=== PATIENT | male | born 1965 | race African-American/Black ===

== ENCOUNTER 2019-04-08 05:41 | Inpatient (IN) | payer MEDICAID ==
[~2019-04-08] VITALS: Ht 188 cm; Wt 111.2 kg
[2019-04-08] VITALS (8 sets, daily range): BP systolic 150–179; BP diastolic 70–110
[2019-04-08] MEDS ORDERED: NITROGLYCERIN 0.4MG TABLET SL SL PRN ×2 (06:00→10:00)
[2019-04-08] MEDS ORDERED: FUROSEMIDE 100MG/10ML VIAL IVP ONE (06:00)
[2019-04-08 06:18] LABS: BASOPHILS % 1.1 % (0.0-2.0); EOSINOPHILS % 1.5 % (0.0-5.0); HEMOGLOBIN. 10.8 g/dL (14.0-18.0); LYMPHOCYTES % 11.9 % (20.0-50.0); MEAN CORPUSCULAR HEMOGLOBIN 26.4 pg (28.0-32.0); MEAN CORPUSCULAR VOLUME 80.6 fL (80.0-94.0); MEAN PLATELET VOLUME 8.3 fl (7.4-10.4); MONOCYTES % 9.9 % (2.0-8.0); NEUTROPHILS % 75.6 % (40.0-76.0); PLATELET 283 x1000/uL (130-400); RED CELL DISTRIBUTION WIDTH 17.9 % (11.6-14.6)
[2019-04-08 06:23] LABS: CHLORIDE 106 mEq/L (98-107)
[2019-04-08] MEDS ORDERED: KETOROLAC 15MG/ML VIAL IV PRN (10:00)
[2019-04-08] MEDS ORDERED: IPRATROPIUM/ALBUTEROL 0.5-3(2.5)MG/3ML NEB INH PRN (10:00)
[2019-04-08] MEDS ORDERED: ONDANSETRON HCL 4MG/2ML INJ IV PRN (10:00)
[2019-04-08] MEDS ORDERED: ACETAMINOPHEN 325MG TABLET PO PRN (10:00)
[2019-04-08] MEDS ORDERED: MAGNESIUM/ALUMINUM HYDROXIDE/SIMETHICONE 30ML UDC PO PRN (10:00)
[2019-04-08] MEDS ORDERED: DOCUSATE SODIUM 100MG CAPSULE PO PRN (10:00)
[2019-04-08] MEDS ORDERED: GUAIFENESIN 200MG/10ML SUGAR FREE UDC PO PRN (10:00)
[2019-04-08] MEDS ORDERED: ZOLPIDEM TARTRATE 5MG TABLET PO PRN (10:00)
[2019-04-08] MEDS: ENOXAPARIN 40MG/0.4ML SYR SUBCUT SCH (11:18)
[2019-04-08] MEDS: AMLODIPINE 10MG TABLET PO SCH (11:22)
[2019-04-08] MEDS: LISINOPRIL 20MG TABLET PO SCH ×2 (11:26→20:10)
[2019-04-08] MEDS: FAMOTIDINE 20MG TABLET PO SCH ×2 (11:26→20:05)
[2019-04-08] MEDS: ASPIRIN 325MG EC TABLET PO SCH (11:26)
[2019-04-08 13:30] LABS: *AMPHETAMINES SCREEN URINE NEGATIVE (NEGATIVE); *BARBITURATES SCREEN URINE NEGATIVE (NEGATIVE); *BENZODIAZEPINES SCREEN URINE NEGATIVE (NEGATIVE); *COCAINE SCREEN URINE NEGATIVE (NEGATIVE)
[2019-04-08 13:31] LABS: CANNABINOID URINE SCREEN PRESUMTIVE POSITIVE (NEGATIVE); METHADONE URINE SCREEN NEGATIVE (NEGATIVE); OPIATES URINE SCREEN NEGATIVE (NEGATIVE); PHENCYCLIDINE URINE SCREEN NEGATIVE (NEGATIVE)
[2019-04-08] MEDS: TRAMADOL 50MG TABLET PO PRN ×2 (14:04→20:11)
[2019-04-08] MEDS ORDERED: DEXTROSE 50% WATER 50ML SYRINGE IV PRN (15:30)
[2019-04-08 16:32] LABS: ETHANOL BLOOD < 10 mg/dL
[2019-04-08 16:34] LABS: LDL CHOLESTEROL 60 mg/dL (5-100)
[2019-04-08 16:37] LABS: HDL CHOLESTEROL 55 mg/dL (40-59)
[2019-04-08 16:42] LABS: CREATINE KINASE MB FRACTION 1.4 ng/mL (0.5-3.6)
[2019-04-08] MEDS ORDERED: FLUT1DIS3 INH (16:52)
[2019-04-08] MEDS ORDERED: ATOR40TA70 MT (16:52)
[2019-04-08] MEDS ORDERED: GABA-290 MT (16:52)
[2019-04-08] MEDS ORDERED: LOSA100T32 MT (16:52)
[2019-04-08] MEDS ORDERED: METF-816 MT (16:52)
[2019-04-08] MEDS ORDERED: ASPI-1393 MT (16:52)
[2019-04-08] MEDS ORDERED: CLOP75TA33 MT (16:52)
[2019-04-08] MEDS: INSULIN LISPRO 100 UNITS/ML SUBCUT SCH ×2 (17:46→20:19)
[2019-04-08] MEDS: BLOOD SUGAR DIAGNOSTIC STRIP TEST SCH ×2 (17:46→20:18)
[2019-04-08] MEDS: FUROSEMIDE 40MG/4ML VIAL IVP SCH (17:51)
[2019-04-08] MEDS: CLONIDINE 0.1MG TABLET PO PRN (20:10)
[2019-04-08] MEDS: SPIRONOLACTONE 25MG TABLET PO SCH (20:11)
[2019-04-09] VITALS (11 sets, daily range): BP systolic 135–184; BP diastolic 59–109
[2019-04-09] MEDS: CLONIDINE 0.1MG TABLET PO PRN (01:05)
[2019-04-09 01:57] LABS: CREATINE KINASE MB FRACTION 1.7 ng/mL (0.5-3.6)
[2019-04-09] MEDS: TRAMADOL 50MG TABLET PO PRN (05:28)
[2019-04-09] MEDS: CLONIDINE 0.2MG TABLET PO PRN ×3 (05:28→16:19)
[2019-04-09] MEDS: FUROSEMIDE 40MG/4ML VIAL IVP SCH ×2 (06:49→18:00)
[2019-04-09] MEDS: BLOOD SUGAR DIAGNOSTIC STRIP TEST SCH ×3 (07:30→18:16)
[2019-04-09] MEDS: ASPIRIN 325MG EC TABLET PO SCH (09:06)
[2019-04-09] MEDS: INSULIN LISPRO 100 UNITS/ML SUBCUT SCH ×3 (09:06→18:00)
[2019-04-09] MEDS: LISINOPRIL 20MG TABLET PO SCH (09:06)
[2019-04-09] MEDS: FAMOTIDINE 20MG TABLET PO SCH (09:07)
[2019-04-09] MEDS: SPIRONOLACTONE 25MG TABLET PO SCH (09:07)
[2019-04-09] MEDS: AMLODIPINE 10MG TABLET PO SCH (09:07)
[2019-04-09] MEDS: ENOXAPARIN 40MG/0.4ML SYR SUBCUT SCH (09:08)
[2019-04-09] MEDS ORDERED: MINOXIDIL 2.5MG TABLET PO SCH (10:15)
[2019-04-09] MEDS ORDERED: ENOXAPARIN 30MG/0.3ML SYR SUBCUT SCH (21:00)
== END 2019-04-09 21:23 | disposition home or self-care (01) | DRG 194 ==
LOC: EDBD 05:41 → ER 05:41 → 5EST 06:21 → ENRESERV 08:46
PROVIDERS: ADMIT Internal Medicine; ATTEND Internal Medicine
PROC: 5A09357 Assistance with Respiratory Ventilation, Less than 24 Consecutive Hours, Continuous Positive Airway Pressure (ICD-10-PCS; principal; 2019-04-08)
DX: I11.0 Hypertensive heart disease with heart failure (principal); J96.00 Acute respiratory failure, unspecified whether with hypoxia or hypercapnia; J44.1 Chronic obstructive pulmonary disease with (acute) exacerbation; E11.9 Type 2 diabetes mellitus without complications; I50.33 Acute on chronic diastolic (congestive) heart failure; F17.210 Nicotine dependence, cigarettes, uncomplicated; F12.10 Cannabis abuse, uncomplicated; Z89.421 Acquired absence of other right toe(s); Z79.84 Long term (current) use of oral hypoglycemic drugs
CPT/HCPCS: 36415; 71045; 80061; 80305; 80320; 82550; 82553; 82962; 83036; 83880; 84484; 93005; 93970; 94660; 96374; 99291; J1650; J1815; J1885; J1940; J7620; G0480

== ENCOUNTER 2024-12-15 16:07 | Inpatient (IN) | payer MEDICAID ==
[~2024-12-15] VITALS: Ht 182.9 cm; Wt 117.0 kg
[~2024-12-15 16:07] MED LIST: ALBU18HF2 IH; APIX5TAB MT; ASPI-1497 MT; ATOR40TA70 MT; CLOP75TA33 MT; FLUT1DIS3 INH; FURO-151 MT; GABA-290 MT; LOSA100T33 MT; METF-1150 MT; P20 PO; POTA-205 MT
[2024-12-15 17:06] LABS: HEMATOCRIT. 36.7 % (42.0-52.0); HEMOGLOBIN. 11.5 g/dL (14.0-18.0); MEAN CORPUSCULAR HEMOGLOBIN 23.5 pg (28.0-32.0); MEAN CORPUSCULAR HGB CONC 31.3 g/dL (31.0-37.0); PLATELET 435 x1000/uL (130-400); RED BLOOD CELL COUNT 4.89 mill/uL (4.7-6.1); WHITE BLOOD COUNT 8.2 x1000/uL (4.5-11.0)
[2024-12-15 17:08] LABS: DIFFERENTIAL COMMENT 1
[2024-12-15 17:11] LABS: CHLORIDE 95 mEq/L (98-107); POTASSIUM 3.3 mEq/L (3.5-5.1); SODIUM 131 mEq/L (136-145)
[2024-12-15 17:12] LABS: CARBON DIOXIDE 30 mEq/L (21-32)
[2024-12-15 17:13] LABS: CALCIUM 9.6 mg/dL (8.7-10.4); INR 1.1; PROTHROMBIN TIME 11.7 sec (9.6-11.0)
[2024-12-15 17:17] LABS: CREATININE 1.2 mg/dL (0.6-1.3); GLUCOSE 196 mg/dL (70-105)
[2024-12-15 17:18] LABS: ETHANOL BLOOD < 10 mg/dL (<10); UREA NITROGEN BLOOD 14 mg/dL (9-23)
[2024-12-15 17:19] LABS: TROPONIN I HIGH SENSITIVITY 50 ng/L (3.0-53)
[2024-12-15] MEDS: MORPHINE SULFATE 4 MG/ML INJ (FOR IV/IM USE) IV STA (17:22)
[2024-12-15] MEDS: POTASSIUM CHLORIDE 20MEQ TABLET SR PO NR ×2 (17:22→21:36)
[2024-12-15] MEDS ORDERED: FUROSEMIDE 100MG/10ML VIAL IVP ONE (17:45)
[2024-12-15 17:55] LABS: ANISOCYTOSIS 2+; MICROCYTOSIS 2+; PLATELET ESTIMATE INCREASED
[2024-12-15] MEDS: FUROSEMIDE 40MG/4ML VIAL IV NR (18:06)
[2024-12-15 18:25] VITALS: PULSE 98; RESP 18; O2SAT 97
[2024-12-15] MEDS: ALBUTEROL (0.083%) 2.5MG/3ML NEB HHN NR (18:25)
[2024-12-15] MEDS: IPRATROPIUM BROMIDE (0.02%) 0.5MG/2.5ML NEB HHN NR (18:25)
[2024-12-15] MEDS: LABETALOL 5MG/ML 4ML INJ IV NR (18:31)
[2024-12-15] MEDS: METHYLPREDNISOLONE SOD SUCC 40MG/ML (ACT-O-VIAL) IV NR (18:31)
[2024-12-15] MEDS: ASPIRIN 325MG EC TABLET PO NR (18:31)
[2024-12-15 20:00] VITALS: BP 138/63; PULSE 76; RESP 18; TEMP 36.4; O2SAT 95
[2024-12-15] MEDS ORDERED: DOCUSATE SODIUM 100MG CAPSULE PO PRN (20:00)
[2024-12-15] MEDS ORDERED: GUAIFENESIN 200MG/10ML SUGAR FREE UDC PO PRN (20:00)
[2024-12-15] MEDS ORDERED: ACETAMINOPHEN 325MG TABLET PO PRN (20:00)
[2024-12-15] MEDS ORDERED: MAGNESIUM/ALUMINUM HYDROXIDE/SIMETHICONE 30ML UDC PO PRN (20:00)
[2024-12-15] MEDS ORDERED: DIPHENHYDRAMINE 50MG/ML VIAL IV PRN (20:00)
[2024-12-15] MEDS ORDERED: ONDANSETRON HCL 4MG/2ML INJ IV PRN (20:00)
[2024-12-15] MEDS: ENOXAPARIN 40MG/0.4ML SYR SUBCUT SCH (21:36)
[2024-12-15] MEDS: SACUBITRIL/VALSARTAN 24MG/26MG TABLET PO SCH (21:36)
[2024-12-15 22:25] LABS: POTASSIUM 4.2 mEq/L (3.5-5.1)
[2024-12-15 22:35] LABS: TROPONIN I HIGH SENSITIVITY 44 ng/L (3.0-53)
[2024-12-15 22:36] LABS: PHOSPHORUS 3.2 mg/dL (2.5-4.9)
[2024-12-15 22:46] LABS: FOLIC ACID (FOLATE) SERUM > 20.00 ng/mL (>5.38)
[2024-12-15 23:22] LABS: VITAMIN B12 SERUM 589 pg/mL (211-911)
[2024-12-16] VITALS: BP 153/80; PULSE 81; RESP 18; TEMP 36.1; O2SAT 93
[2024-12-16] MEDS ORDERED: EMPA10TA PO (00:15)
[2024-12-16] MEDS ORDERED: BUME2TAB8 MT (00:33)
[2024-12-16] MEDS ORDERED: ASCO125T PO (00:33)
[2024-12-16] MEDS ORDERED: MONT-39 MT (00:33)
[2024-12-16] MEDS ORDERED: DOCU100T MT (00:33)
[2024-12-16] MEDS ORDERED: CARV25TA47 MT (00:50)
[2024-12-16] MEDS ORDERED: FERR325T6 MT (00:50)
[2024-12-16] MEDS ORDERED: TOPUD MT (00:50)
[2024-12-16] MEDS ORDERED: SACU1TAB MT (00:50)
[2024-12-16] MEDS ORDERED: PANT40TA51 MT (00:50)
[2024-12-16] MEDS ORDERED: QUET100T34 MT (00:50)
[2024-12-16] MEDS ORDERED: GLIP5TAB22 MT (00:50)
[2024-12-16 00:53] VITALS: BP 107/61; PULSE 65; RESP 20; TEMP 36.6
[2024-12-16] MEDS ORDERED: DEXTROSE 50% WATER 50ML SYRINGE IV PRN ×2 (01:15→08:00)
[2024-12-16 04:00] VITALS: BP 120/76; PULSE 71; RESP 20; TEMP 36.1; O2SAT 94
[2024-12-16] MEDS: EMPAGLIFLOZIN 10MG TABLET PO SCH ×2 (06:30→06:43)
[2024-12-16] MEDS: BLOOD SUGAR DIAGNOSTIC STRIP TEST SCH (06:58)
[2024-12-16 07:18] LABS: POTASSIUM 5.5 mEq/L (3.5-5.1)
[2024-12-16 07:19] LABS: CALCIUM 8.9 mg/dL (8.7-10.4)
[2024-12-16 07:20] LABS: BASOPHILS % 0.4 % (0.0-2.0); DIFFERENTIAL COMMENT 1; HEMATOCRIT. 37.5 % (42.0-52.0); HEMOGLOBIN. 11.5 g/dL (14.0-18.0); LYMPHOCYTES % 9.6 % (20.0-50.0); MEAN CORPUSCULAR HEMOGLOBIN 23.5 pg (28.0-32.0); MEAN CORPUSCULAR HGB CONC 30.7 g/dL (31.0-37.0); MEAN CORPUSCULAR VOLUME 76.7 fL (80.0-94.0); MEAN PLATELET VOLUME 8.8 fl (7.4-10.4); MONOCYTES % 10.5 % (2.0-8.0); NEUTROPHILS % 79.5 % (40.0-76.0); PLATELET 339 x1000/uL (130-400); RED CELL DISTRIBUTION WIDTH 23.1 % (11.6-14.6); WHITE BLOOD COUNT 3.2 x1000/uL (4.5-11.0)
[2024-12-16] MEDS: FUROSEMIDE 40MG/4ML VIAL IVP SCH ×2 (07:21→17:05)
[2024-12-16] MEDS: INSULIN LISPRO 100 UNITS/ML SUBCUT SCH ×3 (07:21→13:51)
[2024-12-16 07:24] LABS: CREATININE 1.5 mg/dL (0.6-1.3)
[2024-12-16] MEDS: ACETAMINOPHEN 325MG TABLET PO PRN (07:25)
[2024-12-16 07:26] LABS: THYROID STIMULATING HORMONE 0.52 uIU/mL (0.55-4.78)
[2024-12-16] MEDS ORDERED: FUROSEMIDE 40MG/4ML VIAL IVP SCH (09:00)
[2024-12-16 10:12] LABS: *AMPHETAMINES SCREEN URINE NEGATIVE (NEGATIVE)
[2024-12-16 10:13] LABS: *BARBITURATES SCREEN URINE NEGATIVE (NEGATIVE); *BENZODIAZEPINES SCREEN URINE NEGATIVE (NEGATIVE); *COCAINE SCREEN URINE PRESUMPTIVE POSITIVE (NEGATIVE); CANNABINOID URINE SCREEN NEGATIVE (NEGATIVE); METHADONE URINE SCREEN NEGATIVE (NEGATIVE); OPIATES URINE SCREEN PRESUMPTIVE POSITIVE (NEGATIVE); PHENCYCLIDINE URINE SCREEN NEGATIVE (NEGATIVE)
[2024-12-16 10:14] LABS: ECSTASY MDMA SCREEN URINE NEGATIVE (NEGATIVE)
[2024-12-16] MEDS ORDERED: NALOXONE HCL 0.4MG/ML VIAL IV PRN (10:15)
[2024-12-16] MEDS ORDERED: ALBUTEROL (0.5%) 2.5MG/0.5ML NEB HHN NR (10:30)
[2024-12-16] MEDS: MAGNESIUM HYDROXIDE 400MG/5ML 30ML UDC PO PRN (10:39)
[2024-12-16] MEDS: POLYETHYLENE GLYCOL 3350 (17GM) 1 DOSE PACK PO SCH (10:39)
[2024-12-16] MEDS: ASPIRIN 81MG TABLET PO SCH (10:40)
[2024-12-16] MEDS: APIXABAN 5 MG TABLET PO SCH (10:41)
[2024-12-16] MEDS: HYDROCODONE/ACETAMINOPHEN 5/325MG TABLET PO PRN (11:11)
[2024-12-16] MEDS: AMLODIPINE 2.5MG TABLET PO SCH (11:12)
[2024-12-16] MEDS: CARVEDILOL 12.5MG TABLET PO SCH (11:13)
[2024-12-16] MEDS: SODIUM ZIRCONIUM CYCLOSILICATE 10GM/PACKET PO NR (11:16)
[2024-12-16 11:51] LABS: IRON 70 ug/dL (65-175)
[2024-12-16 11:54] LABS: CREATINE KINASE 59 IU/L (46-171); TOTAL IRON BINDING CAPACITY 142 ug/dl (250-425)
[2024-12-16 20:00] VITALS: BP 176/103; PULSE 75; RESP 20; TEMP 36.4; O2SAT 95
[2024-12-16] MEDS: FAMOTIDINE 20MG TABLET PO SCH (20:42)
[2024-12-16] MEDS: INSULIN GLARGINE 100 UNITS/ML SUBCUT SCH (21:34)
[2024-12-16 21:37] LABS: CLARITY URINE CLEAR (CLEAR); COLOR URINE YELLOW (YELLOW)
[2024-12-16 21:38] LABS: GLUCOSE URINE 3+ (NEGATIVE); PROTEIN URINE 1+ (NEGATIVE)
[2024-12-16 21:39] LABS: KETONES URINE NEGATIVE (NEGATIVE); LEUKOCYTE ESTERASE URINE NEGATIVE (NEGATIVE); NITRITE URINE NEGATIVE (NEGATIVE); OCCULT BLOOD URINE NEGATIVE (NEGATIVE); UROBILINOGEN URINE 0.2 E.U./dL (0.2-1.0)
[2024-12-16 21:40] LABS: BACTERIA URINE TRACE; RBC URINE NONE SEEN /hpf (0-2); SQUAMOUS EPITHELIAL CELL URINE RARE /lpf (RARE/1+); WBC URINE 0-2 /hpf (0-2)
[2024-12-17] VITALS: BP 111/69; PULSE 71; RESP 20; TEMP 36.7; O2SAT 97
[2024-12-17 01:01] VITALS: PULSE 66; RESP 16
[2024-12-17] MEDS: IPRATROPIUM/ALBUTEROL 0.5-3(2.5)MG/3ML NEB HHN PRN (01:01)
[2024-12-17] MEDS: HYDRALAZINE 20MG/ML VIAL IV PRN (03:45)
[2024-12-17 04:00] VITALS: BP 189/89; PULSE 88; RESP 20; TEMP 36.3; O2SAT 98
[2024-12-17 06:33] LABS: BASOPHILS % 1.5 % (0.0-2.0); EOSINOPHILS % 3.3 % (0.0-5.0); HEMATOCRIT. 36.2 % (42.0-52.0); HEMOGLOBIN. 11.4 g/dL (14.0-18.0); LYMPHOCYTES % 22.1 % (20.0-50.0); MEAN CORPUSCULAR HEMOGLOBIN 23.4 pg (28.0-32.0); MEAN CORPUSCULAR HGB CONC 31.3 g/dL (31.0-37.0); MEAN CORPUSCULAR VOLUME 74.6 fL (80.0-94.0); MEAN PLATELET VOLUME 8.4 fl (7.4-10.4); MONOCYTES % 13.8 % (2.0-8.0); NEUTROPHILS % 59.3 % (40.0-76.0); PLATELET 390 x1000/uL (130-400); RED BLOOD CELL COUNT 4.86 mill/uL (4.7-6.1); RED CELL DISTRIBUTION WIDTH 24.1 % (11.6-14.6); WHITE BLOOD COUNT 6.5 x1000/uL (4.5-11.0)
[2024-12-17 06:52] LABS: DIFFERENTIAL COMMENT 1
[2024-12-17 06:53] LABS: ADD RBC MORPHOLOGY NO
[2024-12-17 06:57] LABS: CARBON DIOXIDE 31 mEq/L (21-32); CHLORIDE 97 mEq/L (98-107); SODIUM 139 mEq/L (136-145)
[2024-12-17 06:58] LABS: CALCIUM 9.6 mg/dL (8.7-10.4)
[2024-12-17 07:02] LABS: CREATININE 1.1 mg/dL (0.6-1.3)
[2024-12-17 07:03] LABS: UREA NITROGEN BLOOD 17 mg/dL (9-23)
[2024-12-17 07:07] LABS: GLUCOSE 225 mg/dL (70-105); POTASSIUM 3.4 mEq/L (3.5-5.1)
[2024-12-17 08:00] VITALS: BP 176/97; PULSE 87; RESP 18; TEMP 36.5; O2SAT 96
[2024-12-17] MEDS: AMLODIPINE 5MG TABLET PO SCH (09:56)
[2024-12-17 12:04] VITALS: BP 150/78; PULSE 87; RESP 18
== END 2024-12-17 14:00 | disposition left against medical advice (07) | DRG 194 ==
LOC: ER 16:07 → 8WST 18:07 → EDBEDREQ 18:19
PROVIDERS: ADMIT Hospitalist; ATTEND Hospitalist
DX: I13.0 Hypertensive heart and chronic kidney disease with heart failure and stage 1 through stage 4 chronic kidney disease, or unspecified chronic kidney disease (principal); E87.3 Alkalosis; N17.9 Acute kidney failure, unspecified; E11.22 Type 2 diabetes mellitus with diabetic chronic kidney disease; E87.1 Hypo-osmolality and hyponatremia; I48.92 Unspecified atrial flutter; D50.9 Iron deficiency anemia, unspecified; E11.65 Type 2 diabetes mellitus with hyperglycemia; E66.01 Morbid (severe) obesity due to excess calories; E87.5 Hyperkalemia; E87.6 Hypokalemia; I83.014 Varicose veins of right lower extremity with ulcer of heel and midfoot; L97.419 Non-pressure chronic ulcer of right heel and midfoot with unspecified severity; I50.9 Heart failure, unspecified; I48.91 Unspecified atrial fibrillation; N18.2 Chronic kidney disease, stage 2 (mild); G47.33 Obstructive sleep apnea (adult) (pediatric); Z53.29 Procedure and treatment not carried out because of patient's decision for other reasons; F12.10 Cannabis abuse, uncomplicated; F14.129 Cocaine abuse with intoxication, unspecified; F17.210 Nicotine dependence, cigarettes, uncomplicated; Z79.01 Long term (current) use of anticoagulants; Z79.02 Long term (current) use of antithrombotics/antiplatelets; Z79.4 Long term (current) use of insulin; Z79.51 Long term (current) use of inhaled steroids; Z79.82 Long term (current) use of aspirin; Z79.84 Long term (current) use of oral hypoglycemic drugs; Z79.899 Other long term (current) drug therapy; Z68.35 Body mass index [BMI] 35.0-35.9, adult
CPT/HCPCS: 36415; 71045; 76770; 80048; 80061; 80305; 80320; 81003; 82533; 82550; 82607; 82728; 82746; 82962; 83036; 83540; 83550; 83735; 83880; 84100; 84132; 84300; 84443; 84484; 85025; 93005; 93306; 93970; 94070; 94640; 97166; 99285; A4606; J0360; J1650; J1815; J1940; J2270; J2920; G0480